=== PATIENT | female | born 1990 | race Caucasian/White ===

== ENCOUNTER 2020-09-27 11:10 | Emergency (ER) | payer BC ==
[2020-09-27] MEDS ORDERED: Bacitracin/Neomycin/Polymyxin B Oint 0.9 GM U/D Packet TOP ONE (11:19)
[2020-09-27] MEDS ORDERED: Diphtheria,Pertussis(Acell),Tetanus Vaccine 0.5 ML Syringe IM ONE (11:34)
--- NOTE | 2020-09-27 12:23 | EDM.PDOC ---
ED HPI GENERAL MEDICAL PROBLEM - General Chief Complaint: Laceration Stated Complaint: laceration Time Seen by Provider: 09/27/20 11:50 - History of Present Illness INITIAL COMMENTS - FREE TEXT/NARRATIVE: She presents to the ED for evaluation of a laceration on the tip of the left index finger. She cut it on a razor about 1 hour prior to arrival. No other injury. No other acute concerns. Left Finger-Index Pain Score (Numeric/FACES): 2 - Related Data Allergies Allergy/AdvReac Type Severity Reaction Status Date / Time Sulfa (Sulfonamide Allergy Rash Verified 09/27/20 11:11 Antibiotics) Home Meds: Home Meds . [No Known Home Meds] 09/27/20 [History] ED ROS GENERAL - Review of Systems Review Of Systems: See Below Constitutional: Denies: Fever, Chills HEENT: Denies: Sinus Problem, Throat Pain Respiratory: Denies: Shortness of Breath, Cough Cardiovascular: Denies: Chest Pain, Palpitations Neurological: Reports: Other (Laceration finger) ED EXAM, SKIN/RASH Exam: See Below Exam Limited By: No Limitations General Appearance: Alert, WD/WN, No Apparent Distress Skin: Wound/Incision (2 cm straight laceration over the lopez surface of the distal phalanx left index finger.) Course - Vital Signs Text/Narrative:: Wound is infiltrated with 2 cc 1 percent lidocaine without epinephrine. Tourniquet is applied to the base of the finger. Finger is cleansed with betadine and draped with sterile towels. Wound is closed with 4 simple interrupted sutures using a 4-0 ethilon. Antibiotic ointment and dressing were applied. Given routine wound care instructions. No complications. Last Recorded V/S: Last Vital Signs Temp 36.9 C 09/27/20 11:22 Pulse 61 09/27/20 11:22 Resp 18 09/27/20 11:22 BP 114/80 09/27/20 11:22 Pulse Ox 98 09/27/20 11:22 - Orders/Labs/Meds Orders: Active Orders 24 hr Category Date Time Status Vaccines to be Administered [RC] PER UNIT ROUTINE Care 09/27/20 11:35 Active Meds: Medications Discontinued Medications Generic Name Dose Route Start Last Admin Trade Name Freq PRN Reason Stop Dose Admin Diphtheria/Tetanus/Acell Pertussis 0.5 ml 09/27/20 11:34 09/27/20 11:40 Diphtheria,Pertussis(Acell),Tetanus Vaccine 0.5 Ml Syringe IM 09/27/20 11:35 0.5 ml .ONCE ONE Administration Lidocaine HCl 5 ml 09/27/20 11:19 09/27/20 11:41 Lidocaine 1% 5 Ml Sdv INJECT 09/27/20 11:20 5 ml ONETIME ONE Administration Neomycin/Polymyxin/Bacitracin 1 each 09/27/20 11:19 09/27/20 11:41 Bacitracin/Neomycin/Polymyxin B Oint 0.9 Gm U/D Packet TOP 09/27/20 11:20 1 each ONETIME ONE Administration Departure - Departure Time of Disposition: 12:21 Disposition: Home, Self-Care 01 Condition: Good Clinical Impression: Laceration of finger - Discharge Information *PRESCRIPTION DRUG MONITORING PROGRAM REVIEWED*: Not Applicable *COPY OF PRESCRIPTION DRUG MONITORING REPORT IN PATIENT SONIA: Not Applicable Instructions: Laceration Care, Adult, Sutures, Quita, or Adhesive Wound Closure, [id number], VIS, Tetanus, Diphtheria, and Pertussis (Tdap) - CDC (10/03/2019) Referrals: Sirena Barillas PA-C [Primary Care Provider] - Forms: ED Department Discharge Additional Instructions: Keep dressing on for 24 hours. Monitor for signs of infection (increasing redness, drainage, fever). Suture removal in 10 days. Return earlier with any problems. Sepsis Event Note (ED) - Evaluation Sepsis Screening Result: No Definite Risk - Focused Exam Vital Signs: Vital Signs Temp Pulse Resp BP Pulse Ox 09/27/20 11:22 36.9 C 61 18 114/80 98 - Problem List & Annotations (1) Laceration of finger SNOMED Code(s): 323889198 Code(s): S61.219A - LACERATION W/O FB OF UNSP FINGER W/O DAMAGE TO NAIL, INIT Status: Acute - Problem List Review Problem List Initiated/Reviewed/Updated: Yes - My Orders Last 24 Hours: My Active Orders 09/27/20 11:35 Vaccines to be Administered [RC] PER UNIT ROUTINE - Assessment/Plan Last 24 Hours: My Active Orders 09/27/20 11:35 Vaccines to be Administered [RC] PER UNIT ROUTINE Plan: Keep dressing on for 24 hours. Monitor for signs of infection (increasing redness, drainage, fever). Suture removal in 10 days. Return earlier with any problems.
== END 2020-09-27 12:25 | disposition home or self-care (01) ==
LOC: LL.ED 11:10
DX: S61.211A Laceration without foreign body of left index finger without damage to nail, initial encounter (principal); Z23 Encounter for immunization; Z88.2 Allergy status to sulfonamides; W26.8XXA Contact with other sharp object(s), not elsewhere classified, initial encounter
CPT/HCPCS: 12001; 90471; 90715; 99282; 99282-25